=== PATIENT | female | born 1945 | race Caucasian/White ===

== ENCOUNTER 2017-07-27 20:17 | Emergency (ER) | payer OTHER ==
[~2017-07-27] VITALS: Ht 177.8 cm; Wt 99.8 kg
[2017-07-27 20:33] VITALS: Ht 177.8 cm; Wt 99.8 kg
[2017-07-27 21:09] LABS: BASOPHIL % 0.4 % (0-2); PLATELET COUNT 281 x10^3mcL (130-400)
[2017-07-27 21:12] LABS: RED CELL DISTRIBUTION WIDTH 15.4 % (11.5-14.5)
[2017-07-27 21:23] LABS: CALCIUM 9.6 mg/dL (8.5-10.1); CARBON DIOXIDE 26.1 mmol/L (21-32); CHLORIDE SERUM 101 mmol/L (98-107); CREATININE SERUM 0.8 mg/dL (0.6-1.0); GFR1 > 60 mL/min; GLUCOSE SERUM 161 mg/dL (74-106); SODIUM SERUM 137 mmol/L (136-145)
[2017-07-27 21:27] LABS: ALBUMIN 3.9 g/dL (3.4-5.0); ALKALINE PHOSPHATASE 84 U/L (46-116); ALT/SGPT 35 U/L (14-59); AMYLASE 45 U/L (25-115); AST/SGOT 24 U/L (15-37); BILIRUBIN TOTAL 0.41 mg/dL (0.20-1.00); HDL CHOLESTEROL 51 mg/dL (40-60); LIPASE 118 IU/L (73-393)
[2017-07-27 21:30] LABS: UA SPECIFIC GRAVITY 1.015 (1.005-1.035); microscopic required? YES; urine erythrocyte 1+ (NEGATIVE)
[2017-07-27 21:30] LABS: CHOLESTEROL 225 mg/dL (<200)
[2017-07-27 21:41] LABS: AMPHETAMINE QUAL UR NONE DETECTED (NEG <=1000)
[2017-07-27 23:09] VITALS: BP 129/52
== END 2017-07-27 23:09 | disposition home or self-care (01) ==
LOC: ED 20:17
PROVIDERS: Emergency Medicine
DX: S13.4XXA Sprain of ligaments of cervical spine, initial encounter (principal); S00.03XA Contusion of scalp, initial encounter; S50.02XA Contusion of left elbow, initial encounter; I10 Essential (primary) hypertension; M47.892 Other spondylosis, cervical region; E03.9 Hypothyroidism, unspecified; E78.00 Pure hypercholesterolemia, unspecified; W10.8XXA Fall (on) (from) other stairs and steps, initial encounter; Z88.0 Allergy status to penicillin; Z88.1 Allergy status to other antibiotic agents; Z88.2 Allergy status to sulfonamides; Z88.5 Allergy status to narcotic agent; Y93.89 Activity, other specified; Y92.89 Other specified places as the place of occurrence of the external cause; Y99.8 Other external cause status
CPT/HCPCS: 36415; 83880